=== PATIENT | male | born 1965 | race Caucasian/White ===

== ENCOUNTER 2022-03-06 15:14 | Emergency (ER) | payer OTHER ==
[~2022-03-06] VITALS: Ht 167.6 cm; Wt 83.9 kg
[2022-03-06 15:24] VITALS: BP 139/84
--- NOTE | 2022-03-06 15:40 | NUR ---
brunilda, flu swabbed at this time
[2022-03-06] MEDS ORDERED: KETOROLAC 30 MG/ML VIAL IM ONE (15:55)
--- NOTE | 2022-03-06 16:28 | NUR ---
strep swabbed at this time
[2022-03-06] MEDS ORDERED: LIDO15SO PO (17:07)
[2022-03-06] MEDS ORDERED: PENI500T20 PO (17:07)
[2022-03-06] MEDS ORDERED: ALBU0.0912 IH (17:07)
[2022-03-06] MEDS ORDERED: BPM/118S31 PO (17:07)
[2022-03-06] MEDS ORDERED: IBUP-2213 PO (17:07)
[2022-03-06] MEDS ORDERED: BENZ100C6 PO (17:07)
[2022-03-06 17:16] VITALS: BP 118/70
--- NOTE | 2022-03-06 17:17 | NUR ---
Patient discharged with v/s stable. Written and verbal after care instructions given and explained. Patient alert, oriented and verbalized understanding of instructions. Ambulatory with steady gait. All questions addressed prior to discharge. ID band removed. Patient advised to follow up with PMD. Rx of PENICILLIN, LIDOCAINE VISCOUS, MOTRIN, ALBUTEROL given. Patient educated on indication of medication including possible reaction and side effects. Opportunity to ask questions provided and answered.
== END 2022-03-06 17:16 | disposition home or self-care (01) ==
LOC: MED 15:14
DX: J20.9 Acute bronchitis, unspecified (principal); Z20.822 Contact with and (suspected) exposure to COVID-19; J02.0 Streptococcal pharyngitis; I10 Essential (primary) hypertension; Z79.899 Other long term (current) drug therapy
CPT/HCPCS: 71045; 87081; 87426; 87804; 96372; 99284; J1885

== ENCOUNTER 2022-10-06 18:43 | Emergency (ER) | payer OTHER ==
[~2022-10-06] VITALS: Ht 167.6 cm; Wt 86.2 kg
[~2022-10-06 18:43] MED LIST: ALBU0.0912 IH; BPM/118S31 PO; IBUP-2213 PO; LIDO15SO4 PO; PENI500T20 PO
[2022-10-06 18:52] VITALS: BP 159/110; PULSE 79; RESP 16; TEMP 98; O2SAT 96
--- NOTE | 2022-10-06 19:10 | NUR ---
Pt to bed 11.
[2022-10-06] MEDS ORDERED: KETOROLAC 30 MG/ML VIAL IM ONE (19:20)
--- NOTE | 2022-10-06 19:28 | NUR ---
Ultrasound by bedside
--- NOTE | 2022-10-06 20:11 | NUR ---
Patient is a 57/M, known case of right testicular hydrocele, left testicular cyst, S/P bilateral inguinal hernia repair (2019), who came in due to chronic testicular pain (right more than left), 11/01, sharp/burning, aggravated by lifting, associated by swelling and redness. Denies fever, penile discharge or urinary symptoms. Denies trauma to area. PMHx: HT, right testicular hydrocele, left testicular cyst, S/P bilateral inguinal hernia repiar (2019) NKA
[2022-10-06 21:09] LABS: APPEARANCE,URINE CLEAR (CLEAR); BILIRUBIN,URINE NEGATIVE (NEGATIVE); BLOOD, URINE NEGATIVE (NEGATIVE); COLOR,URINE YELLOW (YELLOW); LEUKOCYTE ESTERASE ,URINE NEGATIVE (NEGATIVE); NITRITE, URINE NEGATIVE (NEGATIVE); UGLUCOSE NEGATIVE (NEGATIVE)
[2022-10-06] MEDS ORDERED: IBUP-2213 PO (21:15)
[2022-10-06] MEDS ORDERED: cefTRIAXone 500 MG in LIDOCAINE MPF 1% 1 ML IM ONE (21:15)
[2022-10-06] MEDS ORDERED: DOXY-690 PO (21:15)
[2022-10-06] MEDS ORDERED: cefTRIAXone 500 MG VIAL ONE (21:31)
[2022-10-06] MEDS ORDERED: LIDOCAINE MPF 1% 5 ML ONE (21:31)
[2022-10-06 21:45] VITALS: BP 140/86; PULSE 61; RESP 16; TEMP 98; O2SAT 100
--- NOTE | 2022-10-06 21:47 | NUR ---
Patient discharged with v/s stable. Written and verbal after care instructions given and explained. New rx vibramycin and ibuprofen. Patient verbalized understanding. Ambulatory with steady gait. All questions addressed prior to discharge. Advised to follow up with PMD.
== END 2022-10-06 21:47 | disposition home or self-care (01) ==
LOC: MED 18:43
DX: N45.3 Epididymo-orchitis (principal); N43.3 Hydrocele, unspecified; I10 Essential (primary) hypertension; F41.9 Anxiety disorder, unspecified; Z79.899 Other long term (current) drug therapy
CPT/HCPCS: 76870; 81003; 87086; 87491; 96372; 99285; J0696; J1885; J2001; Q0092

== ENCOUNTER 2023-02-05 15:47 | Emergency (ER) | payer OTHER ==
[~2023-02-05] VITALS: Ht 167.6 cm; Wt 86.2 kg
[~2023-02-05 15:47] MED LIST changes: -BPM/118S31 PO; +BROM118S70 PO; +DOXY-690 PO
[2023-02-05 16:00] VITALS: BP 137/86; PULSE 91; RESP 20; TEMP 97.8; O2SAT 96
[2023-02-05] MEDS ORDERED: KETOROLAC 30 MG/ML VIAL IM ONE (17:20)
[2023-02-05] MEDS ORDERED: IBUP-2213 PO (19:05)
== END 2023-02-05 19:15 | disposition home or self-care (01) ==
LOC: MED 15:47
DX: M79.662 Pain in left lower leg (principal); R22.42 Localized swelling, mass and lump, left lower limb; I10 Essential (primary) hypertension; Z79.899 Other long term (current) drug therapy; Z79.1 Long term (current) use of non-steroidal anti-inflammatories (NSAID); Z79.2 Long term (current) use of antibiotics
CPT/HCPCS: 93971; 96372; 99285; J1885